=== PATIENT | female | born 1975 | race Two or more races ===

== ENCOUNTER → 2023-12-24 11:11 | Outpatient (REF) | payer BC, SELFPAY | LOC: HWWDC 11:11 | PROVIDERS: ATTENDING PHYSICIAN Internal Medicine | DX: Z12.31 Encounter for screening mammogram for malignant neoplasm of breast (principal) | CPT/HCPCS: 77063; 77067 ==

== ENCOUNTER → 2025-02-16 08:57 | Outpatient (REF) | payer BC, SELFPAY | LOC: RAD 08:57 | PROVIDERS: ATTENDING PHYSICIAN Registered Nurse; FAMILY PHYSICIAN Internal Medicine | DX: R09.A2 Foreign body sensation, throat (principal) | CPT/HCPCS: 70360 ==

== ENCOUNTER → 2025-02-26 09:23 | Outpatient (REF) | payer BC, SELFPAY | LOC: HWRAD 09:23 | PROVIDERS: ATTENDING PHYSICIAN Registered Nurse | DX: R09.A2 Foreign body sensation, throat (principal) | CPT/HCPCS: 70490 ==

== ENCOUNTER → 2025-04-11 08:01 | Outpatient (REF) | payer BC, SELFPAY | LOC: WDC 08:01 | PROVIDERS: ATTENDING PHYSICIAN Internal Medicine | DX: Z12.31 Encounter for screening mammogram for malignant neoplasm of breast (principal) | CPT/HCPCS: 77063; 77067 ==